=== PATIENT | female | born 1960 | race Caucasian/White ===

== ENCOUNTER 2021-04-07 00:13 | Emergency (ER) | payer OTHER ==
[~2021-04-07 00:13] MED LIST: AMANTADINE TOP; ATENOLOL25 MG PO; HCTZ12.5 MG PO; HYDROCODONE-APA1 TAB PO; LIPITOR20 MG PO; MAGNESIUM250 M1 PO; METFORMIN HCL850 MG PO; NORCO 5-325 TA1 EACH PO; SENNA8.6 MG PO; SUPER B COMPLE1 EAC1 PO; SYMBICORT 80-10.2 GM INH; SYNTHROID88 MCG PO; VENTOLIN HFA IN18 GM INH; ZOFRAN4 MG PO
[2021-04-07 01:16] LABS: BASOPHIL 1.1 % (0-2); HCT 39.1 % (37.0-47.0); HGB 13.6 g/dl (12.5-16.0); LYMPHOCYTE 36.4 % (15-48); MCH 29.9 pg (25.0-31.0); MCHC 34.8 g/dL (32.0-36.0); MCV 85.9 fL (78.0-100.0); MPV 11.5 fL (6.0-9.5); NEUTROPHIL 50.1 % (41-80); NRBC 0; PLT 196 K/uL (150-400); RBC 4.55 M/uL (4.20-5.40); RDW 13.7 % (11.5-14.0); WBC 9.8 K/uL (4.0-10.5)
[2021-04-07 01:30] LABS: IRON % SATURATION 20.3 %SAT (20-50)
[2021-04-07 01:37] LABS: ALBUMIN 3.6 g/dL (3.4-5.0); BILIRUBIN - TOTAL 0.6 mg/dL (0.2-1.0); BUN/CREAT RATIO (CALC) 23.4 RATIO; CREATININE 0.64 mg/dL (0.51-0.95); FT4 (FREE T4) 1.2 ng/dL (0.76-1.46); GLOBULIN (CALCULATION) 3.8 g/dL; MAGNESIUM 1.7 mg/dL (1.8-2.4); POTASSIUM 3.9 mmol/L (3.5-5.1); TOTAL PROTEIN 7.4 g/dL (6.4-8.2)
[2021-04-07 01:39] LABS: PRO-BNP 436 pg/mL (<125)
[2021-04-07 02:34] LABS: BILIRUBIN NEGATIVE (NEGATIVE); BLOOD NEGATIVE Ery/uL (NEGATIVE); CLARITY CLEAR (CLEAR); COLOR YELLOW (YELLOW); GLUCOSE (U) NORMAL (NORMAL); LEUKOCYTES 1+ Leu/uL (NEGATIVE); NITRITE NEGATIVE (NEGATIVE); PROTEIN NEGATIVE (NEGATIVE); UROBILINOGEN 0.2 mg/dL (0.2-1.0)
[2021-04-07 02:39] LABS: BACTERIA TRACE; SQUAMOUS EPITHELIAL CELLS RARE
== END 2021-04-07 02:35 | disposition home or self-care (01) ==
LOC: FER 00:13
PROVIDERS: Emergency Medicine
DX: I49.3 Ventricular premature depolarization (principal); E83.42 Hypomagnesemia; E11.9 Type 2 diabetes mellitus without complications; I95.9 Hypotension, unspecified; Z79.84 Long term (current) use of oral hypoglycemic drugs; Z79.899 Other long term (current) drug therapy; Z88.6 Allergy status to analgesic agent
CPT/HCPCS: 36415; 80053; 81001; 83540; 83550; 83690; 83735; 83880; 84145; 84439; 84443; 84484; 85025; 93005